=== PATIENT | female | born 1970 | race Caucasian/White ===

== ENCOUNTER → 2017-10-28 12:24 | Outpatient (CLI) | payer BC, SELFPAY ==
--- NOTE | 2017-10-28 12:30 | HPBI_ITS ---
MAMMOGRAPHY - BILATERAL SCREENING REASON FOR EXAM: Female, 47 years old. Routine annual screening examination. PERTINENT HISTORY: Aunt with breast cancer. TECHNIQUE: Digital bilateral breast chuck (3D mammographic acquisition) in the CC and MLO projections. 2-D mediolateral oblique (MLO) and craniocaudad (CC) views of both breasts were obtained. CAD: Full Field Digital Mammography with Computer Added Detection was performed. COMPARISON: Comparison is made with prior study dated December 27, 2015 and April 10, 2014. FINDINGS: Breast Composition: The breasts are heterogeneously dense, which may obscure small masses. There are no dominant masses or suspicious calcifications. Stable 9 mm well-defined nodule in the deep upper lateral portion of the right breast suggestive of a small lymph node. This is unchanged. No other significant abnormalities are identified. There has been no significant change since the prior study. HPBI/SCREENING MAMM (CAD), BILAT IMPRESSION: Stable bilateral screening mammogram. Yearly follow-up mammogram recommended. (A) ASSESSMENT CATEGORY: BIRADS Category 2: Benign. A letter regarding these results will be sent to the patient by the facility within 30 days. Approximately 10% of breast cancers are not detected by mammography. A normal mammogram should not delay biopsy of a clinically suspicious abnormality. [id number] Electronically Signed: Logan Soliman MD at 13:33 EST Tel [phone], Service support ,
== END ==
PROVIDERS: Family Provider Family Medicine; PCP Family Medicine; Visit Provider Obstetrics & Gynecology
DX: Z12.31 Encounter for screening mammogram for malignant neoplasm of breast (principal)
CPT/HCPCS: 77063; 77067

== ENCOUNTER → 2018-05-31 15:25 | Outpatient (CLI) | payer BC, SELFPAY ==
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
== END ==
PROVIDERS: Family Provider Family Medicine; PCP Family Medicine; Visit Provider Nurse Practitioner Family
DX: M79.672 Pain in left foot (principal)
CPT/HCPCS: 73630

== ENCOUNTER → 2019-05-12 10:31 | Outpatient (CLI) | payer BC, SELFPAY ==
[2019-05-12 12:25] LABS: Absolute Lymphocyte Count 2.29 X10^3/uL (0.83-4.51); Absolute Neutrophil Count 3.7 X10^3/uL (2.0-7.7); Basophil# 0.04 X10^3/uL; Basophil% 0.6 % (0-1); Eosinophil# 0.15 X10^3/uL; Eosinophils% 2.2 % (0-5); Hematocrit 40.1 % (37-47); Hemoglobin 12.8 g/dL (12.0-15.0); Lymphocyte # 2.29 X10^3/ul (4.0); Lymphocyte % 34.2 % (19-41); Mean Corp Hgb Conc 31.9 g/dL (32-36); Mean Corpuscular Hgb 28.5 pg (27.0-32.0); Mean Corpuscular Volume 89.3 fL (81-99); Monocyte# 0.49 X10^3/uL; Monocyte% 7.3 % (0-10); NRBC Flagged by Analyzer 0 % (0-5); Neutrophil # 3.71 X10^3/uL (2.7-7.7); Neutrophil % 55.4 % (47-70); Platelet Count 204 K/mm3 (150-450); RBC Distribution Width CV 13.2 % (11.6-14.6); RBC Distribution Width SD 43.1 fl (35.1-43.9); Red Blood Count 4.49 M/mm3 (4.2-5.4); White Blood Count 6.7 K/mm3 (4.4-11.0)
[2019-05-12 12:53] LABS: ALB/GLOB Ratio 0.9 RATIO (0.9-2.4); AST(SGOT) 15 U/L (15-37); Alanine Aminotransfer ALT/SGPT 24 U/L (13-56); Albumin, Serum 3.9 g/dL (3.2-5.0); Alkaline Phosphatase 127 U/L (45-117); Anion Gap 4 (5-15); BUN 13 mg/dL (7-18); BUN/Creat Ratio 17.8 RATIO (10-20); Calcium,Total 9.3 mg/dL (8.5-10.1); Chloride 105 mmol/L (98-107); Creatinine, Serum 0.73 mg/dL (0.55-1.02); EST Glomerular Filtration Rate 90 mL/min (>60); Est Glom Filt Rate - Afr Amer 109 mL/min (>60); Ferritin 85 ng/mL (8-252); Globulin 4.4 g/dL (2.2-4.2); Glucose 92 mg/dL (74-106); Potassium 4.3 mmol/L (3.5-5.1); Protein, Total 8.3 g/dL (6.4-8.2); Sodium Level 140 mmol/L (136-145)
== END ==
PROVIDERS: Family Provider Family Medicine; PCP Family Medicine; Referring Provider Family Medicine; Visit Provider Family Medicine
DX: Z00.00 Encounter for general adult medical examination without abnormal findings (principal); N94.6 Dysmenorrhea, unspecified; R42 Dizziness and giddiness
CPT/HCPCS: 36415; 80053; 82728; 85025

== ENCOUNTER → 2019-07-19 12:42 | Outpatient (CLI) | payer BC, SELFPAY ==
--- NOTE | 2019-07-19 12:46 | BI_ITS ---
MAMMOGRAPHY - BILATERAL SCREENING REASON FOR EXAM: Female, 48 years old. Routine annual screening examination. PERTINENT HISTORY: Aunt with breast cancer. TECHNIQUE: Digital bilateral breast keisha (3D mammographic acquisition) in the CC and MLO projections. 2-D mediolateral oblique (MLO) and craniocaudad (CC) views of both breasts were obtained. CAD: Full Field Digital Mammography with Computer Added Detection was performed. COMPARISON: Comparison is made with prior examination dated October 28, 2017 and December 27, 2015. FINDINGS: Breast Composition: The breasts are heterogeneously dense, which may obscure small masses. There are no dominant masses or suspicious calcifications. Stable bilateral benign-appearing axillary lymph nodes. Stable 9 mm well-defined nodule in the deep upper lateral aspect of the right breast suggestive of a small lymph node. No other significant abnormalities are identified. There has been no significant change since the prior study. BI/SCREEN MAMM (CAD) W/KEISHA BILAT IMPRESSION: Stable bilateral screening mammogram. Yearly follow-up mammogram recommended. (A) ASSESSMENT CATEGORY: BIRADS Category 2: Benign. A letter regarding these results will be sent to the patient by the facility within 30 days. Approximately 10% of breast cancers are not detected by mammography. A normal mammogram should not delay biopsy of a clinically suspicious abnormality. [id number] Electronically Signed: Logan Soliman, at 14:15 EST , Service support ,
== END ==
PROVIDERS: Family Provider Family Medicine; PCP Family Medicine; Referring Provider Obstetrics & Gynecology; Visit Provider Obstetrics & Gynecology
DX: Z12.31 Encounter for screening mammogram for malignant neoplasm of breast (principal)
CPT/HCPCS: 77063; 77067

== ENCOUNTER → 2020-12-14 10:38 | Outpatient (CLI) | payer BC, SELFPAY ==
--- NOTE | 2020-12-14 10:40 | BI_ITS ---
MAMMOGRAPHY - BILATERAL SCREENING REASON FOR EXAM: Female, 50 years old. Routine annual screening examination. PERTINENT HISTORY: Aunt with breast cancer. TECHNIQUE: Digital bilateral breast keisha (3D mammographic acquisition) in the CC and MLO projections. 2-D mediolateral oblique (MLO) and craniocaudad (CC) views of both breasts were obtained. CAD: Full Field Digital Mammography with Computer Added Detection was performed. COMPARISON: Comparison is made with prior study of 07/19/2019 and 10/28/2017. FINDINGS: Breast Composition: The breasts are heterogeneously dense, which may obscure small masses. There are no dominant masses or suspicious calcifications. Stable small benign appearing bilateral axillary lymph nodes. No other significant abnormalities are identified. There has been no significant change since the prior study. BI/SCRN MAMM (CAD)W/KEISHA BILAT IMPRESSION: Stable bilateral screening mammogram. Yearly follow-up mammogram recommended. (A) ASSESSMENT CATEGORY: BIRADS Category 2: Benign. A letter regarding these results will be sent to the patient by the facility within 30 days. Approximately 10% of breast cancers are not detected by mammography. A normal mammogram should not delay biopsy of a clinically suspicious abnormality. [id number] Electronically Signed: Logan Soliman MD at 10:57 EDT , Service support ,
== END ==
PROVIDERS: PCP Family Medicine; Referring Provider Obstetrics & Gynecology; Visit Provider Obstetrics & Gynecology
DX: Z12.31 Encounter for screening mammogram for malignant neoplasm of breast (principal); Z80.3 Family history of malignant neoplasm of breast
CPT/HCPCS: 77063; 77067

== ENCOUNTER 2022-02-16 21:58 | Emergency (ER) | payer BC, SELFPAY ==
[2022-02-16 21:59] VITALS: BP 185/105; RESP 15; TEMP 37.2; O2SAT 99; BMI 29.2
[2022-02-16 22:43] VITALS: BP 176/94; PULSE 77; RESP 15; O2SAT 98
--- NOTE | 2022-02-16 22:59 | EDS_ITS ---
HPI History of Present Illness Chief Complaint: Ear Problem Detail of Chief Complaint: Left ear and TMJ pain Informant: patient Onset/Context/Timing Onset: Days Context: Gradual Onset Timing: Continuous Current Severity: Moderate Maximum Severity: Moderate Narrative Narrative: 51-year-old female no seen past medical history other than TMJ. Her recently on a trip. On the return she started having what she thought was an earache in her left ear on Thursday night worse than yesterday spoke to Dr. Charlie Morrell over the phone he did not see her physically the way she described the pain he thought it might be otitis externa and placed her on eardrops. She has had no improvement of her symptoms. The pain is gotten worse. It hurts to move her jaw. She denies any trauma and she has not been swimming. Prior similar symptoms: Yes Recent Illness/Hospitalization: No PFSH PFSH Medical History Anxiety Depression Home Medications Slow Release Iron 140 mg PO DAILY 07/07/13 [History Last Taken Unknown] hydrocodone-acetaminophen 1 tab PO Q4H PRN 2 Days #10 tab 02/16/22 [Rx Last Taken Unknown] [id number] 4 drp OTIC (EAR) Q4H 02/16/22 [History Last Taken Unknown] Allergy/AdvReac Type Severity Reaction Status Date / Time Penicillins Allergy Unknown Verified 02/16/22 22:04 Surgical History History of hysterectomy Social History Smoking Status: Never smoker ROS ROS ED ROS Narrative Left ear and jaw pain. Review of Systems ROS Unobtainable: Denies due to encephalopathy Constitutional Constitutional ED: Denies fever(s) Eyes Eyes: Denies change in vision ENT ENT ED: Reports ear pain; Denies rhinorrhea or sore throat Cardiovascular Cardiovascular: Denies chest pain or palpitations Respiratory/Chest Respiratory/Chest: Denies cough or dyspnea Gastrointestinal Gastrointestinal: Denies abdominal pain or nausea Genitourinary Genitourinary ED: Denies dysuria Musculoskeletal Musculoskeletal: Denies myalgias Integumentary Denies rash Neurologic Neurologic: Denies headache(s) Psychiatric Psychiatric: Denies depression Endocrine Endocrinology: Denies polyuria Allergic/Immunologic Allergic/Immunologic ED: Denies urticaria EXAM Physical Exam Narrative Exam Narrative: Well-appearing 51-year-old female. Vital signs stable afebrile. Blood pressure elevated secondary to pain. H EENT exam both TMs and canals are normal. There is no acute otitis externa or media. She has tenderness over left TMJ. There is no popping. There is no swelling or lymphadenopathy. There is no trismus. Posterior pharynx normal. Neck nontender. No lymphadenopathy. Lungs are clear. Heart regular rhythm. Abdomen soft nontender. Otherwise exam normal. Const Vital Signs: 02/16/22 21:59 02/16/22 22:43 Temperature 99.0 F Temperature Source Temporal Pulse Rate 77 Respiratory Rate 15 15 Blood Pressure 185/105 H 176/94 H Blood Pressure Mean 131 121 Pulse Ox 99 98 Oxygen Delivery Method Room Air Room Air Positive well nourished and well developed; Negative for obese, cachectic, contractures or unkempt General Appearance ED: well developed and NAD; Negative for unkempt, cachectic, contractures, cyanotic, diaphoretic or pallor Nutritional Appearance: Negative for cachectic or obese HEENT Reports moist mucous membranes; Denies dry mucous membranes HEENT Narrative: Left TMJ tenderness. Negative for trauma or tenderness Mouth ED: No dry mucous membranes Mouth: No dry mucous membranes Eyes PERRL and EOMs intact bilaterally General Eye ED: Negative for pale conjunctiva or scleral icterus Neck no lymphadenopathy, supple and no JVD General: Negative for tenderness Chest Wall inspection of chest normal and palpation of chest normal Resp normal respiratory effort and clear to auscultation bilaterally Effort and Inspection: Negative for pain with movement Auscultation: Negative for rales, rhonchi or wheezes Cardio regular rate, regular rhythm, S1 normal heart sound, S2 normal heart sound and no murmurs GI normal to inspection, nondistended, normoactive bowel sounds, non-tender, non- distended and no masses Auscultation: normoactive bowel sounds Palpation: soft; Negative for tender, guarding or rebound tenderness present Back/Spine no CVA tenderness Extremity normal to inspection General Extremety ED: Negative for edema or tenderness General Extremity: Negative for edema Neuro oriented x3 Sensorium / Orientation: alert; Negative for orientation impaired, lethargic or stuporous Motor Exam: strength 5/5 throughout Psych mental status grossly normal Appearance: Negative for unkempt Attitude: No agitated Mood & Affect: Negative for depressed or tearful Skin no rashes or lesions noted and no wounds General Skin Exam: Negative for jaundice or pallor MDM MDM MDM Narrative Medical decision making narrative: 51-year-old female with left TMJ pain. She was placed on eardrops for possible otitis externa by call with her primary care physician's office but they never actually saw her. She does not have an ear infection or otitis externa. She will stop the drops. Written for 8 [place] for pain. Otherwise Motrin and ice to the area. She already has mouthguard she uses for TMJ. Discharge Plan Triage Chief Complaint: Ear Problem ED Provider: Isac Lott Dx/Rx/DC Orders Clinical Impression: Arthralgia of left temporomandibular joint Instructions: ED TMJ Syndrome Prescriptions: New hydrocodone-acetaminophen 5-325 mg tablet 1 tab PO Q4H PRN (Reason: pain) 2 Days Qty: 10 RF: 0 No Action Slow Release Iron 140 MG tablet extended release 140 mg PO DAILY RF: 0 skzdihxa-hmtkdaeaz-LP 3.5-10,000-1 mg/mL-unit/mL-% solution 4 drp otic (ear) Q4H RF: 0 Primary Care Provider: Matt Garcia Referrals: Matt Garcia MD [Primary Care Provider] - As Needed Activity Restrictions/Additional Instructions: Pain appears to be from your TMJ. Not your ear. You can stop the eardrops. There is no eardrum or ear canal infection. Ice to the area. Motrin for pain and inflammation. [place] for more severe pain. Disposition Disposition: Home, Self Care
[2022-02-17 00:06] VITALS: BP 175/100; PULSE 97; RESP 15; O2SAT 97
== END 2022-02-17 00:07 | disposition home or self-care (01) ==
PROVIDERS: Emergency Provider Emergency Medicine; PCP Family Medicine; Visit Provider Emergency Medicine
DX: M26.622 Arthralgia of left temporomandibular joint (principal)
CPT/HCPCS: 99282

== ENCOUNTER 2022-05-16 09:04 | Outpatient (CLI) | payer BC, SELFPAY ==
[2022-05-16 10:07] LABS: Absolute Lymphocyte Count 2.41 X10^3/uL (0.83-4.51); Absolute Neutrophil Count 4.3 X10^3/uL (2.0-7.7); Basophil# 0.04 X10^3/uL; Basophil% 0.5 % (0-1); Eosinophils% 3.9 % (0-5); Hematocrit 38.5 % (37-47); Hemoglobin 12.4 g/dL (12.0-15.0); Lymphocyte # 2.41 X10^3/ul (0.83-4.51); Lymphocyte % 31.4 % (19-41); Mean Corp Hgb Conc 32.2 g/dL (32-36); Mean Corpuscular Hgb 29.1 pg (27.0-32.0); Mean Corpuscular Volume 90.4 fL (81-99); Mean Platelet Vol. 10.8 fl (6.2-12.0); Monocyte# 0.59 X10^3/uL; Monocyte% 7.7 % (0-10); NRBC Flagged by Analyzer 0 % (0-5); Neutrophil # 4.28 X10^3/uL (2.7-7.7); Neutrophil % 55.8 % (47-70); Platelet Count 233 K/mm3 (150-450); RBC Distribution Width CV 13.9 % (11.6-14.6); RBC Distribution Width SD 45.7 fl (35.1-43.9); Red Blood Count 4.26 M/mm3 (4.2-5.4); White Blood Count 7.7 K/mm3 (4.4-11.0)
[2022-05-16 10:45] LABS: Anion Gap 7 (5-15); BUN 14 mg/dL (7-18); BUN/Creat Ratio 18.4 RATIO (10-20); Calcium,Total 9.5 mg/dL (8.5-10.1); Chloride 104 mmol/L (98-107); Creatinine, Serum 0.76 mg/dL (0.55-1.02); EST Glomerular Filtration Rate 85 mL/min (>60); Est Glom Filt Rate - Afr Amer 103 mL/min (>60); Glucose 101 mg/dL (74-106); Potassium 4.4 mmol/L (3.5-5.1); Sodium Level 139 mmol/L (136-145); Thyroid Stim Hormone (TSH) 1.23 uIU/mL (0.358-3.74)
== END 2022-05-16 23:59 | disposition home or self-care (01) ==
LOC: MFPLAB 09:05
PROVIDERS: PCP Family Medicine; Referring Provider Family Medicine; Visit Provider Family Medicine
DX: Z00.00 Encounter for general adult medical examination without abnormal findings (principal)
CPT/HCPCS: 36415; 80048; 84443; 85025

== ENCOUNTER → 2022-06-13 | Outpatient (CLI) | payer BC, SELFPAY ==
[2022-06-13 08:17] LABS: Lyme Ab Screen Interpretation REF LAB
[2022-06-13 09:17] LABS: Hemoglobin A1c 5.5 % (3.8-5.6)
[2022-06-13 09:21] LABS: Glucose GTT- Fasting 100 mg/dL (74-106)
[2022-06-13 09:21] LABS: Insulin 36.4 mU/L (2.6-37.6)
[2022-06-13 09:26] LABS: ALB/GLOB Ratio 0.9 RATIO (0.9-2.4); AST(SGOT) 15 U/L (15-37); Alanine Aminotransfer ALT/SGPT 28 U/L (13-56); Albumin, Serum 3.7 g/dL (3.2-5.0); Alkaline Phosphatase 116 U/L (45-117); Anion Gap 5 (5-15); BUN 12 mg/dL (7-18); BUN/Creat Ratio 18.3 RATIO (10-20); Calcium,Total 9.1 mg/dL (8.5-10.1); Chloride 107 mmol/L (98-107); Creatinine, Serum 0.66 mg/dL (0.55-1.02); EST Glomerular Filtration Rate 101 mL/min (>60); Est Glom Filt Rate - Afr Amer 122 mL/min (>60); Follicle Stimulating Hormone 56.6 mIU/mL; Globulin 3.9 g/dL (2.2-4.2); Glucose 106 mg/dL (74-106); Luteinizing Hormone 31.2 mIU/mL; Potassium 4.1 mmol/L (3.5-5.1); Protein, Total 7.6 g/dL (6.4-8.2); Sodium Level 141 mmol/L (136-145)
[2022-06-13 09:31] LABS: Glucose GTT-30 minutes 168 mg/dL (110-170)
[2022-06-13 10:22] LABS: Glucose GTT- 1 Hour 135 mg/dL (120-170)
[2022-06-13 10:36] LABS: Insulin 237.8 mU/L (2.6-37.6)
[2022-06-13 11:52] LABS: Glucose GTT- 3 Hour 94 mg/dL (74-106)
[2022-06-13 11:53] LABS: Glucose GTT- 2 Hour 105 mg/dL (70-120)
[2022-06-13 13:26] LABS: Glucose GTT- 4 Hour 75 mg/dL (74-106)
[2022-06-13 14:20] LABS: Glucose GTT- 5 Hour 79 mg/dL (74-106)
[2022-06-14 10:32] LABS: Lyme Scn Total Ab w/Rflx Negative (Negative)
== END | disposition home or self-care (01) ==
LOC: LAB 07:59
PROVIDERS: PCP Family Medicine; Referring Provider Family Medicine; Visit Provider Family Medicine
DX: R23.2 Flushing (principal); K04.7 Periapical abscess without sinus; R42 Dizziness and giddiness
CPT/HCPCS: 36415; 80053; 82951; 82952; 83001; 83002; 83036; 83525; 86140; 86618

== ENCOUNTER → 2023-04-08 | Outpatient (CLI) | payer BC, SELFPAY ==
[2023-04-08 10:45] LABS: Insulin 12.6 mU/L (2.6-37.6); Vitamin D,25 Hydroxy 27.8 ng/mL
[2023-04-08 10:56] LABS: AST(SGOT) 22 U/L (15-37); Alanine Aminotransfer ALT/SGPT 30 U/L (13-56); Alkaline Phosphatase 117 U/L (45-117); Anion Gap 5 (5-15); BUN 14 mg/dL (7-18); BUN/Creat Ratio 16.1 RATIO (10-20); Calcium,Total 9.4 mg/dL (8.5-10.1); Chloride 107 mmol/L (98-107); Cholesterol 226 mg/dL (200); Creatinine, Serum 0.87 mg/dL (0.55-1.02); EST Glomerular Filtration Rate 73 mL/min (>60); Est Glom Filt Rate - Afr Amer 88 mL/min (>60); Globulin 4.1 g/dL (2.2-4.2); Glucose 99 mg/dL (74-106); High Density Lipoprotein 45 mg/dL; Potassium 4.3 mmol/L (3.5-5.1); Protein, Total 8.1 g/dL (6.4-8.2); Sodium Level 140 mmol/L (136-145); Thyroid Stim Hormone (TSH) 1.45 uIU/mL (0.358-3.74); Triglycerides 157 mg/dL; Very Low Density Lipoprotein 31 mg/dL (5-40)
== END | disposition home or self-care (01) ==
PROVIDERS: PCP Family Medicine; Referring Provider Internal Medicine Endocrinology, Diabetes & Metabolism; Visit Provider Internal Medicine Endocrinology, Diabetes & Metabolism
DX: E16.1 Other hypoglycemia (principal)
CPT/HCPCS: 36415; 80050; 80053; 80061; 82306; 83525; 84443

== ENCOUNTER → 2024-11-17 | Outpatient (CLI) | payer BC, SELFPAY ==
--- NOTE | 2024-11-17 12:46 | RAD_ITS ---
EXAM: XR Left Knee Complete, 4 or More Views CLINICAL INDICATION: PAIN TECHNIQUE: Four or more views of the left knee. COMPARISON: No relevant prior studies available. FINDINGS: BONES/JOINTS: Mild tricompartment degenerative changes. Apparent lucency of the medial plateau of the tibia could be secondary to degenerative changes. If symptoms persist, further evaluation with CT is recommended. No acute fracture. No dislocation. SOFT TISSUES: Unremarkable. RAD/Knee 4 or More Views IMPRESSION: 1. Degenerative changes as above. 2. Apparent lucency of the medial plateau of the tibia could be secondary to d egenerative changes. If symptoms persist, further evaluation with CT is recommended. Reading Location: [facility]
--- NOTE | 2024-11-17 12:46 | RAD_ITS ---
EXAM: XR Left Shoulder Complete, 2 or More Views CLINICAL INDICATION: PAIN TECHNIQUE: Two or more views of the left shoulder. COMPARISON: No relevant prior studies available. FINDINGS: BONES/JOINTS: Unremarkable. No acute fracture. No dislocation. SOFT TISSUES: Unremarkable. RAD/Shoulder min 2 Views IMPRESSION: No acute fracture. Reading Location[facility]
== END | disposition home or self-care (01) ==
PROVIDERS: PCP Family Medicine
DX: M25.562 Pain in left knee (principal); M25.512 Pain in left shoulder
CPT/HCPCS: 73030; 73564

== ENCOUNTER 2024-12-15 09:56 | Outpatient (RCR) | payer BC, SELFPAY ==
--- NOTE | 2024-12-15 14:00 | HP.PTEVAL_ITS ---
Patient's Visit Information Visit Information Visit Information: MAR GAY is a 54 year old F referred to Physical Therapy by ALLA Hernandez with a diagnosis of LEFT KNEE PAIN AND LEFT SHOULDER PAIN. Date of Evaluation: 12/15/24 Physical Therapist: Epifanio Sandra, PT, Cert MDT, OCS Visit Plan Frequency: 2x /Week Duration: 4 Weeks Plan: PT INTERVENTIONS RTC/SCAPULAR STRENGTHENING ,POSTURAL EX'S ,FLEXABILITY ,STRENGTHENING QUADS/HAMS/HIP AND FUNCTIONAL STRENGTHENING ,PATIENT EDUCATION Subjective Subjective: This 54 y/o female presents to physical therapy with left knee and left shoulder pain. Patient has shoulder left last fall no specific . No injury and accumulative affect insidious onset . Patients seen DR recommended x-rays shoulder -. x-rays knee mild DJD. Patient stated noticed foot last fall stated . Pain located anterior bicep ,lateral deltoid posterior shoulder. Aggravating factors lifting OH and reaching behind back. Carrying Alleviating factors rest ,movements.No paresthesia/tingling. Sleeping okay. Patient located knee global . Aggravating factors walking up steps ,carrying . No problems with kneeling and squatting . Alleviating factors movement . Denies paresthesia/tingling -. Patient condition affects QOLand function. Patient goals to learn ex's. SOCIAL: VOCATION: Rec Therapy Pain Left Knee: Pain Intensity (Out of 10): 2 Pain Intensity Range: 10 Left: Pain Intensity (Out of 10): 2 Pain Intensity Range: 10 Left Shoulder: Pain Intensity (Out of 10): 2 Pain Intensity Range: 10 Objective Objective: POSTURE: mild forward posture PALAPTION: tender medial knee NEURO: denies paresthesia/tingling GAIT: reciprocal pattern AROM: supine knee flexion 0-135 degrees ,OP some pain AROM SHOULDER : flexion 150 degrees ,abduction 150 degrees ,ER 80 Degrees ,IR L1 MMT:quads/hams 5/5 ,hip flexion 4/5 ,hip abduction 4-/5 ,ankle 5/5 FLEXABILITY: quads WFL ,hamstrings min tight STAIRS: alternating Special Tests L Knee Umberto - Meniscus: Negative L Knee Elmer - ACL: Negative L Knee Anterior Drawer - ACL: Negative L Knee Pivot Shift - ACL, Ant. Rotator Instability: Negative L Knee Posterior Drawer - PCL: Negative L Knee Valgus - MCL: Negative L Knee Varus - LCL: Negative L Knee Patellar Apprehension - PFS: Negative L Knee Patellar Grind - PFS: Negative L Shoulder Empty Can - SS: Negative L Shoulder Belly Press - SupScap: Negative L Shoulder Neer - Impingement: Positive L Shoulder Alejandre Juan - Impingement: Positive Balance/Special Test Scores Quick DASH Score: 34.0900 Goals Goal 1:: Patient to be I with HEP for shoulder and knee Goal Time Frame: 4-6 Weeks Goal 2:: Patient to improve AROM shoulder ER90 degrees and IR 1 reaching behind back to put on coat Goal Time Frame: 4-6 Weeks Goal 3:: Patient to improve glut medius to 4/5 to improve to improve gait to improve gait and stairs Goal Time Frame: 6-8 Weeks Goal 4:: Patient to demonstrate 80% improvement with ADLS and houseworks tasks Goal Time Frame: 4-6 Weeks Goal 5:: Patient to improve quick dash by 3 points to improve QOL Goal Time Frame: 4-6 Weeks Rehabilitation Potential Physical Therapy Diagnosis: This patient has left shoulder pain with possible impingement with tendinosis with pain with activities and pain in knee with lifting carrying up steps thus benefit from skilled PT Rehabilitation Potential: Good Anticipated Interventions Patient/Client Instruction: Educate patient on: Condition and Plan of Care For the Purpose of:: To decrease pain, To increase ROM, To improve muscle performance and motor function, To improve ability to perform ADL's, To increase tolerance to activity/condition/position, To improve ability of physical actions for home/community/work/leisure, To improve health of tissue, To decrease soft tissue restriction, To increase flexibility/ROM and To improve tolerance to ADL's Therapeutic Exercise to Include: Strength training, Endurance training, Balance training, Postural training, Flexibilty training, Active ROM and Scapular Strength/Stabilization Comment: RTC QUADS/HAMS /HIP For the Purpose of:: To decrease pain, To increase ROM, To improve muscle performance and motor function, To improve ability to perform ADL's, To increase tolerance to activity/condition/position, To improve ability of physical actions for home/community/work/leisure, To improve gait and locomotor functions, To increase flexibility/ROM, To improve balance, To reduce risk of recurrence and To improve tolerance to ADL's Text: Thank you for the opportunity to evaluate your patient. For Medicare and Medicare HMO plans, please review the plan of care and approve it. It will need to be FAXED BACK to us at [phone] for Medicare purposes. For Medicare only, by signing this I certify the plan of care. Please let me know if there are questions or concerns regarding this plan of care. Physician Signature: Date:
--- NOTE | 2025-04-18 12:19 | HP.PT.NRP ---
Patient Information Patient Information: MAR GAY was seen in my office for initial evaluation on 12/15/24. The following Plan of Care was established for this patient: POC Established Initial Frequency: 2x /Week Initial Duration: 4 Weeks Anticipated Interventions Patient/Client Instruction: Educate patient on: Condition and Plan of Care For the Purpose of:: To decrease pain, To increase ROM, To improve muscle performance and motor function, To improve ability to perform ADL's, To increase tolerance to activity/condition/position, To improve ability of physical actions for home/community/work/leisure, To improve health of tissue, To decrease soft tissue restriction, To increase flexibility/ROM and To improve tolerance to ADL's Therapeutic Exercise to Include: Strength training, Endurance training, Balance training, Postural training, Flexibilty training, Active ROM and Scapular Strength/Stabilization For the Purpose of:: To decrease pain, To increase ROM, To improve muscle performance and motor function, To improve ability to perform ADL's, To increase tolerance to activity/condition/position, To improve ability of physical actions for home/community/work/leisure, To improve gait and locomotor functions, To increase flexibility/ROM, To improve balance, To reduce risk of recurrence and To improve tolerance to ADL's Last Seen Last Seen: This patient was last seen in our office . Pertinent comments regarding their Physical therapy will appear below: This patient seen for PT evaluation for HEP for left shoulder pain At this point I will be discontinuing this patient from physical therapy. I would be happy to see this patient again in the future if found appropriate by the physician. Thank you! Epifanio Sandra, PT, Cert MDT, OCS Balance/Gait/Functional tests Balance/Special Test Scores Quick DASH Score: 34.0900
== END 2024-12-15 19:00 | disposition home or self-care (01) ==
LOC: PT 09:56
PROVIDERS: PCP Family Medicine
DX: M25.512 Pain in left shoulder (principal); M25.562 Pain in left knee
CPT/HCPCS: 97110; 97162

== ENCOUNTER 2025-07-24 18:01 | Emergency (ER) | payer BC, SELFPAY ==
[2025-07-24 18:03] VITALS: BP 156/89; PULSE 89; RESP 16; TEMP 36.6; O2SAT 98; BMI 30.9
[2025-07-24 20:02] VITALS: BP 145/88; PULSE 89; RESP 16; O2SAT 98
--- NOTE | 2025-07-24 20:30 | RAD_ITS ---
PROCEDURE: WRIST MIN 3 VIEWS 07/24/2025 REASON FOR EXAM: INJURY TECHNIQUE: Procedure Code: RADWR Modality: DX Procedure: WRIST MIN 3 VIEWS Laterality: Right COMPARISON: None. FINDINGS: No acute fracture or dislocation visualized. Carpal alignment appears maintained. Preserved visualized joint spaces. No marked soft tissue swelling. Peripheral IV catheter in the dorsal hand. RAD/Wrist min 3 Views IMPRESSION: No acute fracture or dislocation. Reading Location: [id number]
--- NOTE | 2025-07-24 20:30 | CT_ITS ---
PROCEDURE: CT ABDOMEN/PELVIS W IV CONT ONLY 07/24/2025 REASON FOR EXAM: FLANK TRAUMA TECHNIQUE: Procedure Code: [id number] Modality: CT Procedure: ABDOMEN/PELVIS W IV CONT ONLY Coronal and Sagittal reconstruction series were provided. CONTRAST: Isovue 370 VOLUME: 98 mL One or more dose reduction techniques were used (e.g., Automated exposure control, adjustment of the mA and/or kV according to patient size, use of iterative reconstruction technique. RADIATION DOSE SUMMARY: DLP: 1152.38 mGycm COMPARISON: None. FINDINGS: Lung bases: Clear. Liver: Unremarkable. No acute injury. Gallbladder: Cholelithiasis. No evidence for acute cholecystitis. Spleen: Unremarkable. No acute injury. Pancreas: Unremarkable. Adrenals: Unremarkable. Kidneys: Unremarkable. No hydronephrosis. Bladder: Unremarkable. Reproductive Organs: Prior hysterectomy. Unremarkable adnexae. Bowel: Unremarkable. No obstruction or active inflammatory process. Normal appendix. Vasculature: Normal caliber abdominal aorta. Mild atherosclerotic calcifications. Peritoneum / Retroperitoneum: No free fluid or air. No significant adenopathy.. Musculoskeletal: Mild subcutaneous contusional changes in the left flank region. Acute nondisplaced fractures of the L1-L3 left transverse processes. Mild degenerative changes of the spine. CT/Abdomen/Pelvis W IV Cont ONLY IMPRESSION: Acute nondisplaced fractures of L1-L3 left transverse processes. Mild subcutan eous contusional changes in the left flank region. No acute intra-abdominal visceral injuries. Cholelithiasis. Reading Location: [id number]
[2025-07-24 21:56] VITALS: BP 142/96; PULSE 89; RESP 16; TEMP 36.6; O2SAT 98
--- NOTE | 2025-07-24 23:59 | ED.VIS.BACK ---
HPI History of Present Illness Chief Complaint: Back Informant: patient, spouse/S.O. and family Narrative Narrative: 54-year-old female presenting to the emergency room following a fall. Patient was out with the dogs lost her footing and fell. She struck her back on a metal box on the ground. She notes pain in the left low back. She denies any radicular symptoms. She is not on any blood thinners. She notes that it is very painful for her to move does not wish to sit or lay at this time. She denies any head injury. No neck pain. She states that her right wrist is sore with flexion. [facility] Medical History Anxiety Depression Home Medications ?Medication ?Instructions ?Recorded ?Last Taken ?Type ferrous sulfate 140 mg (45 mg 140 mg PO DAILY 07/07/13 Unknown History iron) tablet,extended release (Slow Release Iron) docusate sodium 100 mg capsule 100 mg PO BID #20 caps 07/24/25 Unknown Rx (Colace) oxycodone-acetaminophen 5 mg-325 1 tab PO Q6H PRN pain 5 days #20 07/24/25 Unknown Rx mg tablet (Percocet) tabs Allergy/AdvReac Type Severity Reaction Status Date / Time Penicillins Allergy Unknown Verified 02/16/22 22:04 Surgical History History of hysterectomy Social History Smoking Status: Never smoker [facility] ED Constitutional Constitutional ED: Denies chills, fever(s) or weight loss Eyes Eyes: Denies change in vision or diplopia ENT ENT ED: Denies ear pain, rhinorrhea or sore throat Cardiovascular Cardiovascular: Denies chest pain, orthopnea, palpitations or racing heartbeat Respiratory/Chest Respiratory/Chest: Denies cough, dyspnea or orthopnea Gastrointestinal Gastrointestinal: Denies abdominal pain, diarrhea, nausea or vomiting Genitourinary Genitourinary ED: Denies dysuria, hematuria or urinary frequency Musculoskeletal Musculoskeletal: Reports back pain and other; Denies arthralgias, myalgias or neck pain Integumentary Denies abscess or rash Neurologic Neurologic: Denies headache(s), paresthesias or weakness Psychiatric Psychiatric: Denies anxiety, depression, suicidal ideation or suicidal thoughts Endocrine Endocrinology: Denies polydipsia, polyphagia or polyuria Allergic/Immunologic Allergic/Immunologic ED: Denies mouth swelling, tongue swelling or urticaria EXAM Physical Exam Const Vital Signs: 07/24/25 18:03 07/24/25 20:02 07/24/25 21:56 Temperature 98 F Temperature Source Oral Pulse Rate 89 89 Respiratory Rate 16 16 Blood Pressure 156/89 H 145/88 H 142/96 H Blood Pressure Mean 111 107 111 Pulse Ox 98 98 Oxygen Delivery Method Room Air Room Air 07/24/25 21:56 Temperature 98 F Temperature Source Pulse Rate 89 Respiratory Rate 16 Blood Pressure 142/96 H Blood Pressure Mean 111 Pulse Ox 98 Oxygen Delivery Method Positive well nourished and well developed General Appearance ED: well developed and NAD HEENT Reports normocephalic, head/scalp atraumatic and moist mucous membranes Eyes PERRL and EOMs intact bilaterally Neck no lymphadenopathy, supple and no JVD Resp normal respiratory effort and clear to auscultation bilaterally Cardio regular rate, regular rhythm and no murmurs GI normal to inspection, nondistended, normoactive bowel sounds and non-tender Palpation: soft Back/Spine Back/Spine Narrative: Painful range of motion. There is contusion and superficial abrasion to the left lumbar paraspinal region extending down into the upper buttock. No midline tenderness. Extremity Extremity Narrative: Patient has pain in the right wrist with flexion. She is able to pronate and supinate. There is no obvious deformity. Neurovascular she is intact. General Extremety ED: Negative for edema General Extremity: Negative for edema Neuro oriented x3 and CN's II-XII intact bilaterally Neuro Narrative: GCS is 15 Sensorium / Orientation: alert Motor Exam: strength 5/5 throughout Psych mental status grossly normal Mood & Affect: Negative for depressed or tearful Skin no rashes or lesions noted and no wounds MDM MDM MDM Narrative Medical decision making narrative: Differential diagnosis includes back spasm myofascial strain sprain fracture renal hematoma laceration retroperitoneal bleed contusion wrist fracture neurovascular injury disc herniation Patient is neurologically intact. CT of the abdomen pelvis with IV contrast was obtained. This demonstrates fracture of the transverse processes of L1-2 and 3. There is associated soft tissue contusion. No obvious renal laceration or hematoma or retroperitoneal bleed was noted. Please see radiologist read for full details. While initially resistant the patient did receive a dose of morphine and Zofran. Her pain is better but she is still experiencing pain particularly with movement. May depend interpretation of the plain films of the right wrist is no acute fracture. I sat down and spoke with the patient and her family regarding the diagnoses and the fact that I would expect her to have increased pain tomorrow as well as increased bruising. We talked about other complications such as constipation. I write for her to have Colace and some Percocet. She would like to try to not take the Percocet and stick with more like ibuprofen. I can refer her to spine surgery for evaluation of the fractures. She remains neurologically intact. History & Record Review Discussion w/independent historian: Patient and Family Radiography Diagnostic Testing: Clinical Impression(s) from Imaging Studies Abdomen/Pelvis CT 07/24/25 20:30 IMPRESSION: Acute nondisplaced fractures of L1-L3 left transverse processes. Mild subcutaneous contusional changes in the left flank region. No acute intra-abdominal visceral injuries. Cholelithiasis. Reading Location: [facility] Wrist X-Ray 07/24/25 20:30 IMPRESSION: No acute fracture or dislocation. Reading Location: [facility] Discharge Plan Triage Chief Complaint: Back ED Provider: Radames Ramírez Dx/Rx/DC Orders Clinical Impression: Fall, Right wrist sprain, Closed fracture of transverse process of lumbar vertebra, Back contusion Instructions: ED Back Sprain/Strain, ED Wrist Sprain, ED Transverse Process Fracture Prescriptions: New oxycodone-acetaminophen [Percocet] 5-325 mg tablet 1 tab PO Q6H PRN (Reason: pain) 5 Days Qty: 20 0RF docusate sodium [Colace] 100 mg capsule 100 mg PO BID Qty: 20 0RF No Action Slow Release Iron 140 MG tablet extended release 140 mg PO DAILY Patient Comments: DOSE ?? Primary Care Provider: Matt Garcia Referrals: Kulwinder Canseco MD [Med Staff - Active Staff, Orthopedics] - As soon as possible Referral Note: for ortho spine Matt Garcia MD [Primary Care Provider, Family Practice] Print Language: Amharic Disposition Disposition: Home, Self Care Discharge Date/Time: 07/24/25 22:37
== END 2025-07-24 22:37 | disposition home or self-care (01) ==
PROVIDERS: Emergency Provider Emergency Medicine; PCP Family Medicine; Visit Provider Emergency Medicine
DX: S63.91XA Sprain of unspecified part of right wrist and hand, initial encounter (principal); S32.009A Unspecified fracture of unspecified lumbar vertebra, initial encounter for closed fracture; S20.229A Contusion of unspecified back wall of thorax, initial encounter; W01.198A Fall on same level from slipping, tripping and stumbling with subsequent striking against other object, initial encounter; Z90.710 Acquired absence of both cervix and uterus
CPT/HCPCS: 73110; 74177; 96374; 96375; 99284; Q9967; A4216; J2405